=== PATIENT | female | born 1990 | race Caucasian/White ===

== ENCOUNTER → 2016-06-10 | Outpatient (CLI) | payer OTHER ==
[2016-06-10 15:25] LABS: CH 30.6; CHCM 35.7; HCT 39.7 % (34.0-46.0); HDW 3.28; HGB 13.8 gm/dL (11.4-16.0); MCH 29.9 pg (25.0-35.0); MCHC 34.7 g/dL (31.0-37.0); MCV 86.3 fL (80.0-100.0); RDW 14.8 % (11.5-15.5)
[2016-06-10 15:40] LABS: Glucose 88 mg/dL (74-99); Non-African American GFR(MDRD) >60 (>60 ml/min/1.73 sqM)
[2016-06-10 16:11] LABS: Hepatitis B Surface Ag Index 0.04
[2016-06-11 05:47] LABS: Toxoplasma Antibody (IgG) <3.0 IU/mL (<7.2)
[2016-06-11 07:45] LABS: HIV-1/HIV-2 Ab Screen NONREAC (NON REAC)
== END | disposition home or self-care (01) ==
LOC: LABWHC1 14:31
PROVIDERS: ATTEND Obstetrics & Gynecology
DX: O26.812 Pregnancy related exhaustion and fatigue, second trimester (principal); Z3A.00 Weeks of gestation of pregnancy not specified
CPT/HCPCS: 36415; 82105; 82565; 82677; 82947; 84702; 85027; 86336; 86762; 86777; 86778; 86780; 86850; 86900; 86901; 87340; 87389

== ENCOUNTER → 2016-08-26 | Outpatient (CLI) | payer OTHER ==
[2016-08-26 12:13] LABS: Glucose 3 Hour, Gest 95 mg/dL
== END | disposition home or self-care (01) ==
LOC: LABWHC1 08:05
PROVIDERS: ATTEND Obstetrics & Gynecology
DX: O24.419 Gestational diabetes mellitus in pregnancy, unspecified control (principal); Z3A.00 Weeks of gestation of pregnancy not specified
CPT/HCPCS: 36415; 82951; 82952

== ENCOUNTER 2016-11-03 00:46 | Outpatient (CLI) | payer OTHER ==
[2016-11-03 00:59] VITALS: BP 140/87; PULSE 106; RESP 16; TEMP 97.5
== END 2016-11-03 02:10 | disposition home or self-care (01) ==
LOC: FBPOP 00:46
PROVIDERS: ATTEND Obstetrics & Gynecology
DX: O47.1 False labor at or after 37 completed weeks of gestation (principal); Z3A.37 37 weeks gestation of pregnancy
CPT/HCPCS: 59025; G0463; 99213

== ENCOUNTER 2016-11-11 21:25 | Outpatient (CLI) | payer OTHER ==
[2016-11-11 23:13] VITALS: BP 126/82; PULSE 100; RESP 16; TEMP 96.8
--- NOTE | 2016-11-12 08:03 | P.MSEPDOC ---
Presenting Problems - Arrival Data Date of Arrival on Unit: 11/11/16 Time of Arrival on Unit: 21:25 Mode of Transport: Wheelchair - Complaint OB-Reason for Admission/Chief Complaint: Possible Onset of Labor Medical History - Information : 3 Para: 2 Term: 2 : 0 Abortions: Spontaneous or Elective: 0 Number of Living Children: 2 - Gestational Age Expected Date of Delivery: 11/20/16 Gestational Age by PITER (wks/days): 38 Weeks and 6 Days Review of Systems - Review of Systems Constitutional: No problems Breast: No problems ENT: No problems Cardiovascular: No problems Respiratory: No problems Gastrointestinal: No problems Genitourinary: No problems Musculoskeletal: No problems Neurological: No problems Skin: No problems Vital Signs - Temperature Temperature: 96.8 F Temperature Source: Temporal Artery Scan - Pulse Right Brachial Pulse Rate: 100 Pulse Assessment Method: Automatic Cuff - Respirations Respiratory Rate: 16 Oxygen Delivery Method: Room Air - Blood Pressure Right Arm Supine Blood Pressure: 126/82 Blood Pressure Mean: 96 Blood Pressure Source: Automatic Cuff Medical Screen Scoring (Pre) - Cervical Exam Dilation: 1-3 cm = 1 Membranes: Intact - Uterine Contractions Frequency: > or = 36 weeks =2 Duration: > 40 seconds = 2 - Maternal Vital Signs Maternal Blood Pressure: N/A Signs of Preeclampsia: N/A Maternal Respirations: N/A - Maternal Trauma Maternal Trauma: N/A - Assessment Baseline FHR: 135 Heart Rate - NICHD Category: Category I (Normal) = 0 NST: Reactive Position: N/A Station: N/A - Total Score Total Score (Pre): 5 - Level of Risk Level of Risk: Low (0-5) Physician Notification (Pre) - Physician Notified Physician Notified Date: 11/11/16 Physician Notified Time: 22:45 Physician/Practitioner Notifed:: Lise Spoke With: Lise New Order Received: Yes - Notification Comment Comment: Discharge to home with instructions Disposition - Disposition Discharge Date: 11/11/16 Discharge Time: 22:47 I agree with the RN Medical Screening Exam: Yes Risk & Benefit of care provided described in d/c instruction: Yes Diagnosis: FALSE LABOR AT OR AFTER 37 COMPLETED WEEKS OF GESTATION
== END 2016-11-11 22:47 | disposition home or self-care (01) ==
LOC: FBPOP 21:25
PROVIDERS: ATTEND Obstetrics & Gynecology
DX: O47.1 False labor at or after 37 completed weeks of gestation (principal); Z3A.38 38 weeks gestation of pregnancy
CPT/HCPCS: 59025; G0463; 99213

== ENCOUNTER 2016-11-25 09:28 | Inpatient (IN) | payer OTHER ==
[2016-11-25] MEDS ORDERED: METHYLERGONOVINE 0.2 MG/ML 1 ML AMP IM PRN (10:13)
[2016-11-25] MEDS ORDERED: CARBOPROST TROMETHAMINE 250 MCG/ML 1 ML AMP IM PRN (10:13)
[2016-11-25] MEDS ORDERED: LIDOCAINE 1% (PF) 10 MG/ML (30 ML SDV) SQ PRN (10:13)
[2016-11-25] MEDS ORDERED: OXYTOCIN 10 UNIT/ML 1 ML VIAL IM PRN (10:13)
[2016-11-25] MEDS ORDERED: TERBUTALINE 1 MG/ML VIAL SQ PRN (10:13)
[2016-11-25] MEDS ORDERED: LACTATED RINGERS 1,000 ML IV SCH (10:15)
[2016-11-25] MEDS ORDERED: CLINDAMYCIN 900 MG in DEXTROSE 5% IN WATER 50 ML IVPB SCH ×2 (10:30)
[2016-11-25] MEDS ORDERED: BUTORPHANOL 1 MG/ML 1 ML VIAL IV PRN (10:36)
[2016-11-25 10:46] LABS: Basophils % (A) 0 %; CH 29.5; CHCM 35.6; Eosinophils # (A) 0.2 k/uL (0-0.7); Eosinophils % (A) 1 %; HCT 39.2 % (34.0-46.0); HDW 3.16; HGB 14.4 gm/dL (11.4-16.0); Luc # (Auto) 0.15; Luc % (Auto) 1; Lymphocytes # (A) 1.3 k/uL (1.0-4.8); Lymphocytes % (A) 11 %; MCH 30.5 pg (25.0-35.0); MCHC 36.6 g/dL (31.0-37.0); MCV 83.4 fL (80.0-100.0); Mean Platelet Volume 7.4; Monocytes # (A) 0.4 k/uL (0-1.0); Monocytes % (A) 3 %; Neutrophils # (A) 9.6 k/uL (1.3-7.7); Neutrophils % (A) 83 %; RBC 4.71 m/uL (3.80-5.40); RDW 14.6 % (11.5-15.5); WBC 11.6 k/uL (3.8-10.6); WBC (Perox) 11.43
[2016-11-25 11:36] VITALS: BMI 39.2
--- NOTE | 2016-11-25 13:06 | P.HPOB ---
History of Present Illness H&P Date: 11/25/16 Chief Complaint: Contractions This is a 26-year-old female para 2 with an estimated date of confinement of 11/20/2016, estimated gestational age of 40-5/7 weeks, who presents to labor and delivery with complaints of contractions that began earlier today and became stronger. She denies any rupture membranes. care has been with Dr. Lezama and has been uncomplicated per patient. She did state on the last ultrasound that they said that head circumference was slightly small. labs: GC/chlamydia-negative Syphilis antibody-negative HIV-nonreactive Toxoplasma-negative Quad screen-within normal limits Random glucose-88 Hepatitis B surface antigen-negative Hemoglobin-13.8 Rubella-immune Blood type-O+ Antibody screen-negative Obstetrical ultrasound-normal anatomy One hour Glucola-132 Three-hour Glucola-within normal limits Group B streptococcus-positive Obstetrical history: . History of 2 vaginal deliveries at full-term. History of 1 termination of . Review of Systems Constitutional: Denies chills, Denies fever Eyes: denies blurred vision, denies pain Ears, nose, mouth and throat: Denies headache, Denies sore throat Cardiovascular: Denies chest pain, Denies shortness of breath Respiratory: Denies cough Gastrointestinal: Reports abdominal pain Genitourinary: Reports pelvic pain, Reports Musculoskeletal: Reports low back pain Integumentary: Denies pruritus, Denies rash Neurological: Denies numbness, Denies weakness Past Medical History Past Medical History: No Reported History History of Any Multi-Drug Resistant Organisms: None Reported Past Surgical History: Cholecystectomy, Tonsillectomy Additional Past Surgical History / Comment(s): Tube placement in the ears Past Anesthesia/Blood Transfusion Reactions: No Reported Reaction Past Psychological History: Depression Smoking Status: Never smoker Past Alcohol Use History: None Reported Past Drug Use History: None Reported - Past Family History Mother Family Medical History: Hypertension Medications and Allergies Home Medications Medication Instructions Recorded Confirmed Type No.77/Iron Asp Gly/FA 1 each PO DAILY 11/03/16 11/25/16 History [Prenate Star Tablet] Allergies Allergy/AdvReac Type Severity Reaction Status Date / Time [facility]aclor [facility] Allergy Anaphylaxis Verified 11/11/16 21:36 Exam Osteopathic Statement: *. No significant issues noted on an osteopathic structural exam other than those noted in the History and Physical/Consult. - Vital Signs Vital signs: Vital Signs Temp Pulse Resp BP 11/25/16 10:12 97.7 F 90 18 125/78 Intake and Output 11/24/16 11/25/16 11/25/16 22:59 06:59 14:59 Other: Weight 107.048 kg Patient Weight 11/26/16 06:59 Weight 107.048 kg HEENT: Within normal limits Heart: Regular rate and rhythm Lungs: Clear to auscultation bilaterally Abdomen: Cervix: Initially was 5-6 cm/70%/-2 station with intact membranes. Currently is 8-9 cm/100%/-2 station with bulging bag. Extremities: Negative Homans heart tones: Reactive Contractions: Every 2-3 minutes Results Result Diagrams: 11/25/16 10:39 Abnormal Lab Results - Last 24 Hours (Table) 11/25/16 Range/Units 10:39 WBC 11.6 H (3.8-10.6) k/uL Neutrophils # 9.6 H (1.3-7.7) k/uL Assessment and Plan (1) Active labor Status: Acute (2) 40 weeks gestation of Status: Acute (3) Group B Streptococcus carrier, +RV culture, currently Status: Acute Plan: Admission for labor. Antibiotic prophylaxis for group B streptococcus. Expectant management.
[2016-11-25] MEDS ORDERED: HYDROCORTISONE 2.5% RECTAL CREAM 30 GM TUBE RECTAL PRN (13:51)
[2016-11-25] MEDS ORDERED: Acetaminophen-Codeine 300-30mg TAB PO PRN ×2 (13:51)
[2016-11-25] MEDS ORDERED: LANOLIN CREAM 5 GM TUBE TOPICAL PRN (13:51)
[2016-11-25] MEDS ORDERED: WITCH HAZEL 1 EACH MED..PAD TOPICAL PRN (13:51)
[2016-11-25] MEDS ORDERED: diphenhydrAMINE 50 MG CAP PO PRN (13:51)
[2016-11-25] MEDS ORDERED: SIMETHICONE 80 MG CHEWABLE PO PRN (13:51)
[2016-11-25] MEDS ORDERED: ACETAMINOPHEN TAB 325 MG TAB PO PRN (13:51)
[2016-11-25] MEDS ORDERED: ZOLPIDEM 5 MG TAB PO PRN (13:51)
[2016-11-25] MEDS ORDERED: diphenhydrAMINE 25 MG CAP PO PRN (13:51)
[2016-11-25] MEDS ORDERED: diphenhydrAMINE 50 MG/ML 1 ML VIAL IVP PRN ×2 (13:51)
[2016-11-25] MEDS ORDERED: BENZOCAINE/MENTHOL SPRAY 1 GM/SPRAY AEROSOL TOPICAL PRN (13:51)
[2016-11-25] MEDS ORDERED: OXYTOCIN 20 UNITS/1000 ML NS 1,000 ML IV SCH (13:51)
--- NOTE | 2016-11-25 17:18 | P.PROBDLV ---
Vaginal Delivery Note - . Vaginal Delivery Note: Patient progressed to complete dilation after artificial rupture membranes with clear fluid noted. She did receive 1 dose of Stadol while in labor. 's head came to a crown. With one further push the infant's head delivered across the perineum followed by the anterior shoulder. Nuchal cord 2 was reduced around the infant's head. With one further push, the remainder the easily delivered and was placed on mother's abdomen. Nose and mouth were bulb suctioned at the perineum and after delivery. Cord was clamped and cut. Infant was taken to warmer for evaluation. A viable female was noted with scores of 8 at 1 minute and 9 at 5 minutes and infant weight of 8 lbs. 12 oz. Placenta delivered shortly thereafter, intact, with a three-vessel cord. Uterus contracted well after oxytocin was given and uterine massage was carried out. Inspection of the perineum revealed no perineal lacerations. Estimated blood loss was approximately 150 mL. Both mother and are in stable condition.
[2016-11-25] MEDS: SENNOSIDES-DOCUSATE SODIUM 1 EACH TAB PO SCH (20:20)
[2016-11-26] MEDS: IBUPROFEN 600 MG TAB PO PRN ×2 (02:08→18:41)
[2016-11-26 05:54] LABS: Basophils % (A) 0 %; CHCM 34.6; Eosinophils # (A) 0.2 k/uL (0-0.7); Eosinophils % (A) 1 %; HCT 37.1 % (34.0-46.0); HDW 2.95; HGB 12.7 gm/dL (11.4-16.0); Luc # (Auto) 0.21; Luc % (Auto) 2; Lymphocytes # (A) 1.5 k/uL (1.0-4.8); Lymphocytes % (A) 12 %; MCH 29.9 pg (25.0-35.0); MCHC 34.3 g/dL (31.0-37.0); MCV 87.1 fL (80.0-100.0); Mean Platelet Volume 6.7; Monocytes # (A) 0.6 k/uL (0-1.0); Monocytes % (A) 5 %; Neutrophils % (A) 80 %; RBC 4.25 m/uL (3.80-5.40); RDW 14.5 % (11.5-15.5); WBC 12.4 k/uL (3.8-10.6); WBC (Perox) 12.73
--- NOTE | 2016-11-26 11:26 | P.PNOBGVD ---
Subjective - Subjective Principal diagnosis: Status post vaginal delivery day #1 Interval history: Patient is doing well. She is working at breast-feeding. Lochia is decreasing. Pain is fairly well controlled. Patient reports: Reports appetite normal, Reports voiding normally, Reports pain well controlled, Reports ambulating normally [place]: doing well, nursing well Objective - Latest Vital Signs Latest vital signs: Vital Signs Temp Pulse Resp BP BP Pulse Ox 11/26/16 08:00 97.9 F 76 14 113/75 11/26/16 00:00 98.7 F 97 18 131/86 97 11/25/16 20:00 98.3 F 89 18 129/70 99 11/25/16 16:00 98 F 86 16 132/72 11/25/16 15:52 88 16 133/75 11/25/16 15:22 83 16 125/74 11/25/16 14:52 97 F L 14 131/66 11/25/16 14:37 99 16 136/64 11/25/16 14:22 89 14 134/79 11/25/16 14:03 88 16 129/72 129/72 11/25/16 13:52 97.2 F L 98 16 130/74 Intake and Output 11/25/16 11/26/16 11/26/16 22:59 06:59 14:59 Intake Total 500 Balance 500 Intake: IV 500 Lactated Ringers 1,000 ml 500 @ 125 mls/hr IV .Q8H [facility] Rx#:[id number] Other: # Voids 1 2 - Exam Extremities: Present: normal. Absent: tenderness, edema Abdomen: Present: normal appearance, soft. Absent: distention Uterus: Present: normal, firm. Absent: tenderness - Labs Labs: Abnormal Lab Results - Last 24 Hours (Table) 11/26/16 Range/Units 05:36 WBC 12.4 H (3.8-10.6) k/uL Neutrophils # 10.0 H (1.3-7.7) k/uL Assessment and Plan (1) Active labor Current Visit: Yes Status: Acute Code(s): O60.10X0 - LABOR W DELIVERY, UNSP TRIMESTER, UNSP SNOMED Code(s): 9688864 (2) 40 weeks gestation of Narrative/Plan: Impression is status post vaginal delivery day #1. Plan is to continue with care today and anticipate discharge home tomorrow. Current Visit: Yes Status: Acute Code(s): Z3A.40 - 40 WEEKS GESTATION OF SNOMED Code(s): 53875905 (3) Group B Streptococcus carrier, +RV culture, currently Current Visit: Yes Status: Acute Code(s): O99.820 - STREPTOCOCCUS B CARRIER STATE COMPLICATING SNOMED Code(s): 41297632
[2016-11-26] MEDS: SENNOSIDES-DOCUSATE SODIUM 1 EACH TAB PO SCH ×2 (14:27→23:52)
--- NOTE | 2016-11-27 10:32 | P.DS ---
Providers Date of admission: 11/25/16 10:02 Expected date of discharge: 11/27/16 Attending physician: Tai Lezama Primary care physician: Stated None - Discharge Diagnosis(es) (1) Active labor Current Visit: Yes Status: Acute (2) 40 weeks gestation of Current Visit: Yes Status: Acute (3) Group B Streptococcus carrier, +RV culture, currently Current Visit: Yes Status: Acute Hospital Course: This is a 26-year-old female 4 para 2 at 40-5/7 weeks who presented in active labor. She delivered vaginally a viable female infant on 11/25/2016 with scores of 8 at 1 minute and 9 at 5 minutes and weight of 8 lbs. 12 oz. Nuchal cord 2 was also noted. Her course has been uncomplicated. She was attempting to breast-feed but now has switched to bottle feeding. Lochia is decreasing. Pain is fairly well controlled with ibuprofen. Vital signs are stable. Abdomen is soft with fundus firm and nontender. Extremities show negative Homans. Impression is status post vaginal delivery day #2. Plan is to discharge home today. Routine instructions are given. She is advised to follow up with Dr. Lezama in the office in 6 weeks. She is advised to call the office if she has any further questions or concerns prior to her appointment time. Procedures: Spontaneous vaginal delivery of a viable female infant on 11/25/2016 Patient Condition at Discharge: Stable Plan - Discharge Summary New Discharge Prescriptions: New Ibuprofen [Motrin] 600 mg PO Q6HR PRN #60 tab PRN Reason: Mild Pain Or Fever >= 100.5 Continue No.77/Iron Asp Gly/FA [Prenate Star Tablet] 1 each PO DAILY Discharge Medication List No.77/Iron Asp Gly/FA [Prenate Star Tablet] 1 each PO DAILY 11/03/16 [ History] Ibuprofen [Motrin] 600 mg PO Q6HR PRN #60 tab 11/27/16 [Rx] Follow up Appointment(s)/Referral(s): Tai Lezama DO [Doctor of Osteopathic Medicine] - 6 Weeks Activity/Diet/Wound Care/Special Instructions: Instructions 1. Do not begin any exercise program for 3 weeks. 2. Do not resume sexual relations for 3 weeks or longer if uncomfortable. 3. You may take tub baths or showers at any time. 4. You may use tampons if desired after 3 weeks. 5. Keep the area of episiotomy (stitches) clean and dry. 6. If you are not nursing, wear a good fitting, supportive bra during the day and limit fluid intake for at least 1 week to prevent breast engorgement. 7. Call the office, [phone], within the next week to make appointment for your 6 week checkup if it has not already been made. 8. Report any of the following occurrences to the doctor promptly: a. Heavy, excessive bleeding b. Chills, fever c. Burning or frequency of urination d. Pain or redness and breasts if nursing e. Increasing pain or swelling in episiotomy (stitches). In addition to the above instructions, the following additional should be followed: 1. No heavy lifting or straining (exercising) until after 6 week checkup. 2. Keep abdominal incision clean and dry: You may wear a dressing if more comfortable. 3. Make office appointment for 10 days after going home or as instructed by her doctor. Discharge Disposition: HOME SELF-CARE
[2016-11-27 12:00] VITALS: BP 117/73; PULSE 78; RESP 16; TEMP 98.2
[2016-11-27] MEDS: SENNOSIDES-DOCUSATE SODIUM 1 EACH TAB PO SCH (12:00)
== END 2016-11-27 11:15 | disposition home or self-care (01) | DRG 775 ==
LOC: FBPOP 09:28 → 4FBP 10:02
PROVIDERS: ADMIT Obstetrics & Gynecology; ATTEND Obstetrics & Gynecology
PROC: 10907ZC Drainage of Amniotic Fluid, Therapeutic from Products of Conception, Via Natural or Artificial Opening (ICD-10-PCS; principal; 2016-11-25)
PROC: 10E0XZZ Delivery of Products of Conception, External Approach (ICD-10-PCS; principal; 2016-11-25)
DX: O99.824 Streptococcus B carrier state complicating childbirth (principal); O69.81X0 Labor and delivery complicated by cord around neck, without compression, not applicable or unspecified; Z3A.40 40 weeks gestation of pregnancy; Z37.0 Single live birth; Z88.1 Allergy status to other antibiotic agents
CPT/HCPCS: 59025; 85025; 88307; 99213

== ENCOUNTER 2018-08-17 06:22 | Day surgery (SDC) | payer OTHER ==
[2018-08-10 17:39] VITALS: BMI 34.1
--- NOTE | 2018-08-16 16:35 | P.HPOB ---
History of Present Illness H&P Date: 08/16/18 Chief Complaint: Family planning Shauna is a 19-year-old female who is completed her family planning and desires permanent sterilization. She does have a history of a pulmonary embolism and while previously recommended to try ParaGard she would prefer a permanent sterilization. Risks/benefits/alternatives to this procedure were discussed with the patient in detail and all questions were answered for her prior to proceeding to the operating room. She is scheduled for a left scopic tubal occlusion with Filshie clips. On physical exam this is an obese female whose HEENT is otherwise unremarkable. Heart regular, lungs clear, extremities without pain. Abdomen soft and nontender. Bowel sounds are noted. Pelvic exam is otherwise unremarkable. Due to the brevity of this procedure, normally we would not give any anticoagulation, however will discuss in detail prior to surgery benefits and potential risk of other anticoagulants but she is on pelvic was and that should be enough much she restarts following surgery. Assessment family planning. Plan left scopic tubal occlusion Filshie clips. Past Medical History Past Medical History: Deep Vein Thrombosis (DVT) Additional Past Medical History / Comment(s): HX "PROVOKED" BLOOD CLOT IN [facility] 2016, FOLLOWING VAG DELIVERY. History of Any Multi-Drug Resistant Organisms: None Reported Past Surgical History: Cholecystectomy, Tonsillectomy Additional Past Surgical History / Comment(s): Tube placement in the ears Past Anesthesia/Blood Transfusion Reactions: No Reported Reaction Smoking Status: Never smoker - Past Family History Mother Family Medical History: Hypertension Medications and Allergies Home Medications Medication Instructions Recorded Confirmed Type Acetaminophen [Tylenol Extra 1,000 mg PO Q6H PRN 08/10/18 08/10/18 History Strength] Ibuprofen [Motrin Ib] 200 mg PO Q6H PRN 08/10/18 08/10/18 History Allergies Allergy/AdvReac Type Severity Reaction Status Date / Time cefaclor [From Ceclor] Allergy Anaphylaxis Verified 08/10/18 17:08 Exam Osteopathic Statement: *. No significant issues noted on an osteopathic structural exam other than those noted in the History and Physical/Consult.
[~2018-08-17 06:22] MED LIST: DEXAMETHASONE SOD PHOSPHATE 10 MG/ML 1 ML VIAL IV ONE; LACTATED RINGERS 1,000 ML IV SCH; LIDOCAINE 1% 20 ML VIAL (10MG/ML) FOR IV START INTRADERMA PRN; MIDAZOLAM (PF) 2 MG/2 ML VIAL IV PRN; Pre Op ABX Message 1 EACH MISC MISCELLANE ONE
[2018-08-17] MEDS ORDERED: ONDANSETRON 4 MG/2 ML VIAL IVP ONE (07:07)
[2018-08-17] MEDS ORDERED: MIDAZOLAM 2 MG/2 ML VIAL ONE (07:36)
[2018-08-17] MEDS ORDERED: PROPOFOL 10 MG/ML 20 ML VIAL IV ONE (07:36)
[2018-08-17] MEDS ORDERED: NEOSTIGMINE 1 MG/ML 10 ML VIAL ONE (07:36)
[2018-08-17] MEDS ORDERED: GLYCOPYRROLATE 0.2 MG/ML 2 ML VIAL ONE (07:36)
[2018-08-17] MEDS ORDERED: ROCURONIUM BROMIDE 10 MG/ML 10 ML VIAL IV ONE (07:36)
[2018-08-17] MEDS ORDERED: SUCCINYLCHOLINE CHLORIDE 100 MG/5 ML SYR IV ONE (07:36)
[2018-08-17] MEDS ORDERED: fentaNYL (PF) 50 MCG/ML 2 ML AMP ONE (07:36)
[2018-08-17] MEDS ORDERED: LIDOCAINE 1% INJ 10MG/ML (20 ML MDV) ONE (07:36)
[2018-08-17] MEDS ORDERED: PHENYLEPHRINE-0.9% NACL SYG 1 MG/10 ML SYRINGE ONE (07:36)
[2018-08-17] MEDS ORDERED: BUPIVACAINE (PF) 0.25% 30 ML VIAL SQ ONE ×2 (08:09)
[2018-08-17] MEDS ORDERED: LACTATED RINGERS 1,000 ML IV ONE (08:15)
--- NOTE | 2018-08-17 08:25 | P.OP ---
Date of Procedure: 08/17/18 Preoperative Diagnosis: Family planning Postoperative Diagnosis: Same Procedure(s) Performed: Laparoscopic tubal occlusion with Filshie clips Anesthesia: MACKENZIE Surgeon: Tai Lezama Estimated Blood Loss (ml): 3 Urine output (ml): 150 Pathology: none sent Condition: stable Disposition: same day Operative Findings: Normal female pelvic anatomy. It is noted she is no longer taking her Ellik was but with such a short surgical time we'll not need anticoagulation Description of Procedure: Patient was taken to the operating suite where a general anesthetic was found be adequate. She was prepped and draped in normal sterile fashion and placed in the dorsal lithotomy position. Initially a speculum was inserted into the vagina and the anterior lip of the cervix was identified and grasped with single-tooth tenaculum. She was sounded to 9 cm and the uterine manipulator was inserted without difficulty. Red rubber cath was then used to drain the bladder of urine and other instruments were removed from vagina. Gloves were then changed and attention was turned to the abdominal portion procedure were 2 mL of quarter percent Marcaine was injected periumbilically. Through this injected anesthetic a 5 mm skin incision was made and through this incision under direct visualization with an optical trocar and sleeve the camera was inserted. Once peritoneal placement was assured gas was allowed to fully insufflate the abdomen and patient was then placed in steep Trendelenburg position were second 8 mm skin incision was made 2 cm above the pubic symphysis in the midline. Through this incision another port and sleeve were inserted again under direct visualization. Observations the pelvis were noted. First the right fallopian tube than the left fallopian tube pedicles clip applied 2 cm from uterine cornu. With no bleeding noted in the mesosalpinx incidents removed and gas was allowed to expel from the abdomen. 5 deep breaths were provided during this process. Once this was accomplished 4-0 Vicryl used to close incisions subcuticularly and another 6 mL of quarter percent Marcaine was injected around the incisions. Sponge, lap needle counts were all correct 2 and incidents removed from the vagina. Patient was then taken to the recovery room in stable and satisfactory condition. Plan - Discharge Summary Discharge Rx Participant: Yes New Discharge Prescriptions: New Ibuprofen [Motrin] 600 mg PO Q6HR PRN #30 tab PRN Reason: Pain HYDROcodone/APAP 5-325MG [Comins 5-325] 1 tab PO Q4HR PRN #20 tab PRN Reason: Pain No Action Ibuprofen [Motrin Ib] 200 mg PO Q6H PRN PRN Reason: Pain Acetaminophen [Tylenol Extra Strength] 1,000 mg PO Q6H PRN PRN Reason: Pain Discharge Medication List Acetaminophen [Tylenol Extra Strength] 1,000 mg PO Q6H PRN 08/10/18 [History] Ibuprofen [Motrin Ib] 200 mg PO Q6H PRN 08/10/18 [History] HYDROcodone/APAP 5-325MG [Comins 5-325] 1 tab PO Q4HR PRN #20 tab 08/17/18 [Rx] Ibuprofen [Motrin] 600 mg PO Q6HR PRN #30 tab 08/17/18 [Rx] Follow up Appointment(s)/Referral(s): Tai Lezama DO [Doctor of Osteopathic Medicine] - 2 Weeks Activity/Diet/Wound Care/Special Instructions: No heavy lifting, limit stairs and driving, and pelvic rest. If any high temperatures, heavy bleeding, or severe pain call my office
[2018-08-17 08:32] VITALS: TEMP 98
[2018-08-17] MEDS ORDERED: KETOROLAC 30 MG/ML 1 ML VIAL IVP ONE (08:36)
[2018-08-17 08:42] VITALS: RESP 16
[2018-08-17] MEDS: fentaNYL (PF) 50 MCG/ML 2 ML AMP IV PRN ×5 (08:49→09:14)
[2018-08-17 10:05] VITALS: BP 115/76; PULSE 76
== END 2018-08-17 10:32 | disposition home or self-care (01) ==
LOC: OR 06:22
PROVIDERS: ATTEND Obstetrics & Gynecology
DX: Z30.2 Encounter for sterilization (principal); F32.9 Major depressive disorder, single episode, unspecified; F41.9 Anxiety disorder, unspecified; Z86.718 Personal history of other venous thrombosis and embolism; Z82.49 Family history of ischemic heart disease and other diseases of the circulatory system; Z88.1 Allergy status to other antibiotic agents
CPT/HCPCS: 81025; 58671; J2250; J1100; J2710; J2405; J2001; J3010; J1885; J2370; J0330; J2704

== ENCOUNTER → 2019-06-13 | Outpatient (CLI) | payer OTHER ==
--- NOTE | 2019-06-13 15:26 | US ---
EXAMINATION TYPE: US pelvic complete DATE OF EXAM: 06/13/2019 COMPARISON: NONE CLINICAL HISTORY: Pelvic pain R10.2, N92.6Irregular menstruation. Irregular menses tubal ligation. TECHNIQUE: Transabdominal (TA). Transabdominal sonographic images of the pelvis were acquired. EXAM MEASUREMENTS: Uterus: 9.0 x 3.9 x 7.2 cm Endometrial Stripe: 1.0 cm Right Ovary: 2.6 x 1.7 x 2.0 cm Left Ovary: 4.1 x 1.9 x 2.0 cm 1. Uterus: Anteverted wnl 2. Endometrium: wnl 3. Right Ovary: wnl 4. Left Ovary: wnl 5. Bilateral Adnexa: wnl 6. Posterior cul-de-sac: wnl IMPRESSION: Unremarkable pelvic ultrasound. Endometrial thickness is within normal limits for a preme nopausal female.
== END | disposition home or self-care (01) ==
LOC: RADUSMAIN 14:49
PROVIDERS: ATTEND Obstetrics & Gynecology
DX: N92.6 Irregular menstruation, unspecified (principal)
CPT/HCPCS: 76856

== ENCOUNTER → 2023-11-21 | Outpatient (CLI) | payer OTHER ==
--- NOTE | 2023-11-30 07:32 | MM ---
Reason for Exam: Screening (asymptomatic). Baseline mammogram. Patient History: Menarche at age 11. First Full-Term at age 16. Patient has history of breast feeding. Patient used Hormonal Contraceptives for 12 years. Maternal aunt had breast cancer at or over age 50. Last menstrual period: 10/30/2023 Prior Study Comparison: Patient's first Mammogram. Tissue Density: The breasts are heterogeneously dense, which may obscure small masses. Findings: Analyzed By CAD. The pattern is symmetrical. No suspicious groups of microcalcifications, spiculated or lobular masses, architectural distortion or other secondary signs of malignancy are mammographically apparent. Overall Assessment: Negative, BI-RAD 1 Management: Screening Mammogram of both breasts at age 39. A negative mammogram report should not preclude additional follow up of suspicious palpable abnormalities. Patient should continue monthly self breast exam. A clinical breast exam by your physician is recommended on an annual basis and results should be correlated with mammographic findings. Note on Lucretia scores and lifetime risk: 1. A Lucretia score greater than 3% is considered moderate risk. If this is the case, consider specialist referral to assess eligibility for a risk reducing agent. 2. If overall lifetime risk for the development of breast cancer is 20% or higher, the patient may qualify for future screening with alternating mammogram and breast MRI. Electronically signed and approved by: Zaki Pantoja D.O. Radiologis
== END | disposition home or self-care (01) ==
LOC: RADMAMWWP 14:48
PROVIDERS: ATTEND Family Medicine
DX: Z12.31 Encounter for screening mammogram for malignant neoplasm of breast (principal); Z80.3 Family history of malignant neoplasm of breast
CPT/HCPCS: 77067